=== PATIENT | female | born 1955 | race Caucasian/White ===

== ENCOUNTER 2019-10-18 09:13 | Outpatient (CLI) | payer MEDICARE, SELFPAY ==
--- NOTE | ~2019-10-18 | DEXA_ITS ---
BMD(1) Young-Adult(2) Age-Matched(3) Region (g/cm2) T-score Z-score WHO Classification L1 1.260 1.0 1.4 Normal L2 1.404 1.6 2.0 Normal L3 1.250 0.3 0.7 Normal L4 1.213 0.0 0.4 Normal L1-L4 1.280 0.7 1.1 Normal Trend: L1-L4 Change vs Change vs Measured Age BMD(1) Baseline Previous Date (years) (g/cm2) (%) (%) 10/18/2019 [age] 1.280 baseline - 1 - Statistically 68% of repeat scans fall within 1SD (+- 0.010 g/cm2 for AP Spine L1-L4) 2 - [place] (Combined NHANES (ages 20-30) / Xcalar (ages 20-40)) AP Spine Reference Population (v112) 3 - Matched for Age, Weight (females 25-100 kg), Ethnic 11 - World Health Organization - Definition of Osteoporosis and Osteopenia for Women: Normal = T-score at or above -1.0 SD; Osteopenia = T-score between -1.0 and -2.5 SD; Osteoporosis = T-score at or below -2.5 SD; (WHO definitions only apply when a young healthy Women reference database is used to determine T-scores.) Printed: 10/18/2019 9:54:35 AM (13.60)76:3.00:22.22:27.0 0.00:13.08 0.60x1.05 28.7:%Fat=45.2% 0.00:0.00 0.00:0.00 Filename: [id number] Scan Mode: Thick;OneScan 83.0 CasterStats [id number] BMD(1) Young-Adult(2,7) Age-Matched(3) Region (g/cm2) T-score Z-score WHO Classification Neck Left 1.001 -0.3 0.4 Normal Right 1.015 -0.2 0.5 Normal Mean 1.008 -0.2 0.5 Normal Difference 0.013 0.1 0.1 - Total Left 1.093 0.7 1.0 Normal Right 1.077 0.6 0.9 Normal Mean 1.085 0.6 1.0 Normal Difference 0.016 0.1 0.1 - Hip [place] Length Comparison (mm) AZAR chart results unavailable Trend: Total Mean Change vs Change vs Measured Age BMD(1) Baseline Previous Date (years) (g/cm2) (%) (%) 10/18/2019 64.0 1.085 baseline - 1 - Statistically 68% of repeat scans fall within 1SD (+- 0.010 g/cm2 for DualFemur Total) 2 - [place] (Combined NHANES (ages 20-30) / Xcalar (ages 20-40)) Femur Reference Population (v112) 3 - Matched for Age, Weight (females 25-100 kg), Ethnic 7 - DualFemur Total T-score difference is 0.1. Asymmetry is None. 11 - World Health Organization - Definition of Osteoporosis and Osteopenia for Women: Normal = T-score at or above -1.0 SD; Osteopenia = T-score between -1.0 and -2.5 SD; Osteoporosis = T-score at or below -2.5 SD; (WHO definitions only apply when a young healthy Women reference database is used to determine T-scores.) Printed: 10/18/2019 9:54:35 AM (13.60); Filename: [id number]; Right Femur; 22.5:%Fat=43.5%; Neck Angle (deg)= 73; Scan Mode: Standard 37.0 uGy; Left Femur; 22.9:%Fat=44.5%; Neck Angle (deg)= 73; Scan Mode: Standard 37.0 uGy Reelation [id number] Dear Tigre Rick, Your patient Mellissa Serna completed a BMD test on 10/18/2019 using the Reelation DXA System (analysis version: 13.60) manufactured by [employer]. The following summarizes the results of our evaluation. PATIENT BIOGRAPHICAL: Name: Mellissa Serna Date: 1955 Height: 64.0 in. Gender: Female Exam Date:
== END 2019-10-18 09:14 | disposition home or self-care (01) ==
PROVIDERS: PCP Family Medicine; Visit Provider Family Medicine
DX: Z78.0 Asymptomatic menopausal state (principal)
CPT/HCPCS: 77080